=== PATIENT | female | born 1995 | race Caucasian/White ===

== ENCOUNTER 2020-08-21 20:20 | Day surgery (SDC) | payer SELFPAY ==
[2020-08-21 21:32] VITALS: BMI 27.4
[2020-08-21 22:24] LABS: Amnisure Test No Membranes Rupture (No Rupture)
== END 2020-08-21 22:50 | disposition home or self-care (01) ==
LOC: CSHLD/OP 20:20
PROVIDERS: ATTEND Student in an Organized Health Care Education/Training Program
DX: O99.891 Other specified diseases and conditions complicating pregnancy (principal); N89.8 Other specified noninflammatory disorders of vagina; Z3A.38 38 weeks gestation of pregnancy
CPT/HCPCS: 84112; 99284

== ENCOUNTER 2020-08-25 04:28 | Inpatient (IN) | payer SELFPAY ==
[2020-08-25] MEDS ORDERED: Lidocaine 1% (PF) 30 ML VIAL ONE (05:00)
[2020-08-25] MEDS ORDERED: NS w/ Oxytocin 30 units 500 ML ONE (05:00)
[2020-08-25 05:07] VITALS: BMI 28.3
[2020-08-25] MEDS ORDERED: Ibuprofen 800 MG TAB PO PRN (05:33)
[2020-08-25] MEDS ORDERED: NS / Oxytocin 40 units/1000ml 1,000 ML IV PRN (05:33)
[2020-08-25] MEDS ORDERED: Promethazine HCl 25 MG/ML VIAL IM PRN (05:33)
[2020-08-25] MEDS ORDERED: HYDROcodone/Acetaminophen 5/325 mg Tablet PO PRN ×4 (05:33→06:59)
[2020-08-25] MEDS ORDERED: Ondansetron PF 4 MG/2 ML Vial IVP PRN ×2 (05:33→06:59)
[2020-08-25] MEDS ORDERED: hydrALAZINE 20 MG/ML VIAL SLOW IVP PRN ×2 (05:33→06:59)
[2020-08-25 05:48] LABS: Hemoglobin 13.2 g/dL (12.0-15.5); Mean Corpuscular HGB CONC 33.2 g/dL (32.0-36.0); Mean Corpuscular Hemoglobin 29.4 pg (27.0-33.0); Mean Corpuscular Volume 88.4 fl (81.6-98.3); Mean Platelet Volume 10.5 fl (7.4-10.4); Platelet Count 173 10x3/uL (150-450); RBC Distribution Width 13.8 % (11.5-14.5); Red Blood Cell (RBC) Count 4.49 10x6/uL (3.90-5.03); White Blood Cell (WBC) Count 11.6 10x3/uL (3.5-10.5)
[2020-08-25 06:13] LABS: Syphilis Antibody Nonreactive (Nonreactive); Syphilis Antibody Index 0.07 S/CO (<1.00 Non-Reactive)
[2020-08-25 06:15] LABS: Hep B Surf Ag Non-Reactive S/CO (NonReactive)
[2020-08-25 06:16] LABS: HBSAg Index 0.16 S/CO (0-0.99)
[2020-08-25] MEDS ORDERED: Bisacodyl 10 MG SUPP PR PRN (06:59)
[2020-08-25] MEDS ORDERED: Lanolin Ointment 7 GM TUBE TOP PRN (06:59)
[2020-08-25] MEDS ORDERED: Benzocaine-Menthol 82.5 ML CAN TOP PRN (06:59)
[2020-08-25] MEDS ORDERED: Milk Of Magnesia 30 ML UDCUP PO PRN (06:59)
[2020-08-25] MEDS ORDERED: Adacel (T-DAP) 0.5 ML SYRINGE IM ONE (06:59)
[2020-08-25] MEDS ORDERED: Misoprostol 200 MCG TAB VAG PRN (06:59)
[2020-08-25] MEDS ORDERED: NS w/ Oxytocin 30 units 500 ML IVPB SCH (07:15)
[2020-08-25] MEDS: Docusate Calcium (SURFAK) 240 MG CAP PO SCH ×2 (09:57→21:38)
[2020-08-25] MEDS: Ibuprofen 800 MG TAB PO SCH ×3 (13:54→21:38)
[2020-08-25] MEDS: Prenatal Vitamin 1 TAB PO SCH (13:55)
[2020-08-25] MEDS: Ferrous Sulfate 325 MG TAB PO SCH (17:13)
[2020-08-26] MEDS: Ibuprofen 800 MG TAB PO SCH (06:41)
[2020-08-26 08:17] VITALS: BP 117/61; TEMP 98.1
[2020-08-26] MEDS: Docusate Calcium (SURFAK) 240 MG CAP PO SCH (08:30)
[2020-08-26] MEDS: Prenatal Vitamin 1 TAB PO SCH (08:30)
[2020-08-26] MEDS: Ferrous Sulfate 325 MG TAB PO SCH (08:38)
== END 2020-08-26 13:30 | disposition home or self-care (01) | DRG 807 ==
LOC: CSHLD/OP 04:28 → CSHLD 05:56 → CSHANTE 10:17
PROVIDERS: ADMIT Obstetrics & Gynecology; ATTEND Obstetrics & Gynecology
PROC: 10E0XZZ Delivery of Products of Conception, External Approach (ICD-10-PCS; principal; 2020-08-25)
DX: O80 Encounter for full-term uncomplicated delivery (principal); Z37.0 Single live birth; Z3A.39 39 weeks gestation of pregnancy
CPT/HCPCS: 85027; 86780; 86850; 86900; 86901; 87340; 99285; J2001; J2590

== ENCOUNTER 2023-03-27 01:55 | Inpatient (IN) | payer SELFPAY ==
[2023-03-27 03:01] VITALS: BMI 28.8
[2023-03-27 03:08] LABS: Hematocrit 38.7 % (34.9-44.5); Hemoglobin 12.7 g/dL (12.0-15.5); Mean Corpuscular HGB CONC 32.8 g/dL (32.0-36.0); Mean Corpuscular Hemoglobin 28.7 pg (27.0-33.0); Mean Corpuscular Volume 87.4 fl (81.6-98.3); Mean Platelet Volume 11.2 fl (7.4-10.4); Platelet Count 141 10x3/uL (150-450); RBC Distribution Width 13.6 % (11.5-14.5); Red Blood Cell (RBC) Count 4.43 10x6/uL (3.90-5.03)
[2023-03-27] MEDS ORDERED: fentaNYL 50 mcg/mL 1 mL Vial SLOW IVP PRN (03:24)
[2023-03-27] MEDS ORDERED: Tranexamic Acid 1,000 MG/10 ML VIAL IVP PRN (03:25)
[2023-03-27] MEDS ORDERED: Lidocaine 1% (PF) 30 ML VIAL SC PRN (03:30)
[2023-03-27] MEDS ORDERED: Carboprost 250 MCG/ML AMP IM PRN (03:30)
[2023-03-27] MEDS ORDERED: Misoprostol 200 MCG TAB RC PRN (03:30)
[2023-03-27] MEDS ORDERED: Diphenoxylate HCl/Atropine Tablet PO PRN ×2 (03:30)
[2023-03-27] MEDS ORDERED: hydrALAZINE 20 MG/ML VIAL SLOW IVP PRN ×2 (03:30→15:17)
[2023-03-27] MEDS ORDERED: Oxytocin 30 units/NS 500 ML 500 ML IVPB SCH (03:30)
[2023-03-27] MEDS ORDERED: Methylergonovine 0.2 MG/ML VIAL IM PRN (03:30)
[2023-03-27] MEDS ORDERED: Acetaminophen 500 MG TAB PO PRN (03:30)
[2023-03-27] MEDS ORDERED: Ondansetron PF 4 MG/2 ML Vial IVP PRN ×3 (03:30→15:17)
[2023-03-27] MEDS ORDERED: Promethazine HCl 25 MG/ML VIAL IM PRN ×3 (03:30→15:17)
[2023-03-27 03:40] LABS: Hep B Surf Ag - L&D Non-Reactive S/CO (NonReactive)
[2023-03-27 03:41] LABS: Syphilis Antibody Nonreactive (Nonreactive); Syphilis Antibody Index 0.18 S/CO (<1.00 Non-Reactive)
[2023-03-27] MEDS ORDERED: Bupivacaine 0.25% HCL 30 ML VIAL ONE (08:00)
[2023-03-27] MEDS ORDERED: fentaNYL/Ropivacaine Epidural 100 ML ONE (09:54)
[2023-03-27] MEDS ORDERED: Lactated Ringer's 500 ML IV PRN (09:58)
[2023-03-27] MEDS ORDERED: diphenhydrAMINE 50 MG/ML VIAL IVP PRN (09:58)
[2023-03-27] MEDS ORDERED: ePHEDrine Sulfate 50 MG/10 ML VIAL SLOW IVP PRN (09:58)
[2023-03-27] MEDS ORDERED: Acetaminophen 325 MG TAB PO PRN (09:58)
[2023-03-27] MEDS ORDERED: Naloxone HCl 0.4 mg/ml Vial IVP PRN ×2 (09:58)
[2023-03-27] MEDS ORDERED: Moisturizing Cream (Eucerin) 113 GM JAR TOP PRN (09:58)
[2023-03-27] MEDS ORDERED: Communication Order-Pharmacy FS SCH (10:00)
[2023-03-27] MEDS ORDERED: fentaNYL 2 mcg/Ropivacaine 0.2% Epidural 100 ML CADD EPIDURAL SCH (10:00)
[2023-03-27] MEDS ORDERED: Bisacodyl 10 MG SUPP PR PRN (15:17)
[2023-03-27] MEDS ORDERED: diphenhydrAMINE 25 MG CAP PO PRN (15:17)
[2023-03-27] MEDS ORDERED: HYDROcodone/Acetaminophen 5/325 mg Tablet PO PRN ×2 (15:17)
[2023-03-27] MEDS ORDERED: Lanolin Ointment 7 GM TUBE TOP PRN (15:17)
[2023-03-27] MEDS ORDERED: Preparation H Ointment 28 GM TUBE PR PRN (15:17)
[2023-03-27] MEDS ORDERED: Milk Of Magnesia 30 ML UDCUP PO PRN (15:17)
[2023-03-27] MEDS ORDERED: Benzocaine-Menthol 82.5 ML CAN TOP PRN (15:17)
[2023-03-27] MEDS ORDERED: Boostrix 0.5 ML (Tdap) VIAL (>/=7 yrs of age) IM ONE (15:17)
[2023-03-27] MEDS: Ibuprofen 800 MG TAB PO SCH ×2 (15:59→23:30)
[2023-03-27] MEDS: Ferrous Sulfate 325 MG TAB PO SCH (18:47)
[2023-03-27] MEDS: Docusate 100 MG CAP PO SCH (21:48)
[2023-03-28] MEDS: Ferrous Sulfate 325 MG TAB PO SCH (08:11)
[2023-03-28] MEDS: Docusate 100 MG CAP PO SCH (08:19)
[2023-03-28] MEDS: Ibuprofen 800 MG TAB PO SCH (08:19)
[2023-03-28] MEDS ORDERED: Prenatal Vitamin 1 TAB PO SCH (09:00)
[2023-03-28 11:31] VITALS: BP 111/69; TEMP 97.5
== END 2023-03-28 14:10 | disposition home or self-care (01) | DRG 807 ==
LOC: CSHLD/OP 01:55 → CSHLD 02:53 → CSHPP 14:50
PROVIDERS: ADMIT Student in an Organized Health Care Education/Training Program; ATTEND Student in an Organized Health Care Education/Training Program
PROC: 10E0XZZ Delivery of Products of Conception, External Approach (ICD-10-PCS; principal; 2023-03-27)
DX: O69.81X0 Labor and delivery complicated by cord around neck, without compression, not applicable or unspecified (principal); Z37.0 Single live birth; Z3A.39 39 weeks gestation of pregnancy; Z67.20 Type B blood, Rh positive
CPT/HCPCS: 51702; 85027; 86780; 86850; 86900; 86901; 87340; 99285; S0020